=== PATIENT | male | born 1955 | race Caucasian/White ===

== ENCOUNTER 2022-12-27 10:05 | Emergency (ER) | payer OTHER ==
[~2022-12-27] VITALS: Ht 160 cm; Wt 81.6 kg
[2022-12-27 10:12] VITALS: BP_SYST 139; PULSE 95; RESP 19; TEMP 98; O2SAT 99
[2022-12-27] MEDS ORDERED: LIDOCAINE 1% 10 MG/ML, 20 ML MDV INJ ONE (10:15)
[2022-12-27] MEDS ORDERED: BACITRACIN 1 GM OINT TP ONE (10:15)
[2022-12-27] MEDS ORDERED: DIPHTH,PERTUSS(ACELL),TET VAC 0.5 ML VIAL (Tdap) I.M. ONE (10:15)
[2022-12-27 14:39] VITALS: BP_SYST 95; PULSE 66; RESP 16; TEMP 97.9; O2SAT 99
== END 2022-12-27 11:03 | disposition home or self-care (01) ==
LOC: SED 10:05
DX: S81.811A Laceration without foreign body, right lower leg, initial encounter (principal); Z79.899 Other long term (current) drug therapy; W29.3XXA Contact with powered garden and outdoor hand tools and machinery, initial encounter; Y93.89 Activity, other specified; Y92.89 Other specified places as the place of occurrence of the external cause; Y99.8 Other external cause status
CPT/HCPCS: 99283; 90715; 90471; 12005; J2001